=== PATIENT | male | born 1985 | race Caucasian/White ===

== ENCOUNTER 2025-01-24 22:20 | Inpatient (IN) | payer MEDICAID, SELFPAY ==
[~2025-01-24] VITALS: Ht 180.3 cm; Wt 84.3 kg
[2025-01-24 23:21] VITALS: BP 152/102; TEMP 99.5; O2SAT 98
[2025-01-24] MEDS ORDERED: MAALOX 30 ML SUSP *UDC PO PRN (23:55)
[2025-01-24] MEDS ORDERED: MOM 30ML SUSPENSION UDC PO PRN (23:55)
[2025-01-25] VITALS (7 sets, daily range): BP systolic 130–156; BP diastolic 79–96; TEMP 98–99.1; O2SAT 96–98
[2025-01-25 00:48] LABS: HEMATOCRIT 43.6 % (42.0-52.0); HEMOGLOBIN 15.6 g/dl (13.5-17.5); MEAN CORPUSCULAR HEMOGLOBIN 33.8 pg (27.0-33.0); MEAN CORPUSCULAR HGB CONC 35.8 g/dl (32.0-36.5); MEAN CORPUSCULAR VOLUME 94.4 fl (80.0-96.0); PLATELET COUNT, AUTOMATED 192 10^3/uL (150-450); RED BLOOD COUNT 4.62 10^6/uL (4.30-6.10); WHITE BLOOD COUNT 19.3 10^3/uL (4.0-10.0)
[2025-01-25] MEDS: LR 1,000 ML IV SCH (00:48)
[2025-01-25 01:22] LABS: PROTHROMBIN TIME 13.5 SECONDS (12.5-14.5)
[2025-01-25 01:25] LABS: ALBUMIN 3.7 G/DL (3.2-5.2); ALKALINE PHOSPHATASE 71 U/L (40-129); ALT/SGPT 16 U/L (7.0-40); AST/SGOT 16 U/L (<34); BLOOD UREA NITROGEN 12 MG/DL (9-23); CALCIUM LEVEL 9.2 MG/DL (8.5-10.1); CARBON DIOXIDE LEVEL 23 MMOL/L (20-31); CHLORIDE LEVEL 106 MMOL/L (98-107); CREATININE FOR GFR 0.88 MG/DL (0.70-1.30); GLOMERULAR FILTRATION RATE > 60.0 (>60); GLUCOSE, FASTING 146 MG/DL (60-100); POTASSIUM SERUM 4.4 MMOL/L (3.5-5.1); SODIUM LEVEL 138 MMOL/L (136-145); TOTAL PROTEIN 7.3 G/DL (5.7-8.2)
[2025-01-25] MEDS: UNRESOLVED CLARIFICATION ENTRY XX STA (01:35)
[2025-01-25] MEDS ORDERED: VITA100065 PO (03:07)
[2025-01-25] MEDS ORDERED: IBUP200C25 PO (03:07)
[2025-01-25] MEDS ORDERED: HOME MED LIST COMPLETE! XX SCH (03:10)
[2025-01-25] MEDS: PIPERACILLIN/TAZOBACTAM SOD 3.375 GM in DEXTROSE 5% (D5W) ADV/MINI-BAG 50 ML IV ONE (03:22)
[2025-01-25] MEDS: LIDOCAINE VISCOUS 2% SOLN 15ML UDC SSP ONE (03:34)
[2025-01-25] MEDS ORDERED: LIDOCAINE SSP ONE (04:00)
[2025-01-25] MEDS ORDERED: [UNRECOGNIZED DRUG - OTHER] SSP ONE (04:00)
[2025-01-25] MEDS: DOCUSATE SODIUM 100MG CAPSULE PO SCH (09:00)
[2025-01-25] MEDS: LIDOCAINE VISCOUS 2% SOLN 15ML UDC SSP PRN (11:21)
[2025-01-25] MEDS: AMPICILLIN SOD/SULBACTAM SOD 3 GM in DEXTROSE 5% (D5W) MINI-BAG PLU 100 ML IV SCH (11:22)
[2025-01-25] MEDS ORDERED: ROCURONIUM BROMIDE 50MG/5ML VIAL As Ordered ONE (13:10)
[2025-01-25] MEDS ORDERED: fentaNYL 250 MCG/5 ML INJECTION As Ordered ONE (13:10)
[2025-01-25] MEDS ORDERED: MIDAZOLAM INJ 2MG/2ML VIAL As Ordered ONE (13:10)
[2025-01-25] MEDS ORDERED: LIDOCAINE 2% 100MG/5ML SDV (FOR ANES.) As Ordered ONE (13:10)
[2025-01-25] MEDS ORDERED: propofoL 200 MG/20 ML VIAL As Ordered ONE (13:10)
[2025-01-25] MEDS ORDERED: ACETAMINOPHEN 1000MG/100ML IV BAG As Ordered ONE (13:35)
[2025-01-25] MEDS ORDERED: ONDANSETRON 4MG 2ML VIAL As Ordered ONE (13:40)
[2025-01-25] MEDS: LIDOCAINE W/EPINEPHRINE 1% 20ML VIAL As Ordered ONE (13:55)
[2025-01-25] MEDS: OXYMETAZOLINE 0.05% NASAL SPRAY As Ordered ONE (14:03)
[2025-01-25] MEDS: ACETAMINOPHEN 325 MG TAB PO PRN (17:19)
[2025-01-25] MEDS: IBUPROFEN 400MG TAB PO PRN (21:49)
[2025-01-26 04:27] VITALS: BP 139/89; TEMP 98.2; O2SAT 97
[2025-01-26 07:58] VITALS: BP 137/86; TEMP 98.1; O2SAT 96
[2025-01-26] MEDS: ENOXAPARIN 40MG/0.4ML SYRINGE (J1650 PER 10MG) SC SCH (09:00)
[2025-01-26] MEDS ORDERED: hydrALAZINE 20MG/ML 1ML VIAL IV ONE (09:05)
[2025-01-26] MEDS ORDERED: AMOX875T2 PO (09:27)
[2025-01-26 11:51] VITALS: BP 130/80; TEMP 98; O2SAT 97
== END 2025-01-26 13:05 | disposition home or self-care (01) | DRG 97 ==
LOC: M ED INP 23:44 → M PCU 23:55
PROVIDERS: ADMIT Student in an Organized Health Care Education/Training Program; ATTEND Student in an Organized Health Care Education/Training Program
PROC: 0C9P0ZZ Drainage of Tonsils, Open Approach (ICD-10-PCS; principal; 2025-01-25 10:30)
DX: J36 Peritonsillar abscess (principal); F17.200 Nicotine dependence, unspecified, uncomplicated